=== PATIENT | female | born 1995 | race Caucasian/White ===

== ENCOUNTER 2016-09-03 10:33 | Outpatient (CLI) | payer OTHER ==
[2016-09-03 10:45] LABS: BASOPHILS % 0.6 (0.0-1.5); EOSINOPHILS % 1.5 % (0.0-6.8); LYMPHOCYTES # 1.3 # k/uL (0.6-4.0); MEAN CORPUSCULAR HEMOGLOBIN 30.4 pg (28.0-34.0); MONOCYTES # 0.2 # k/uL (0.0-0.9); NEUTROPHILS # 2.8 # k/uL (1.4-7.7)
[2016-09-03 11:14] LABS: eGFR (African) > 60; eGFR (Non-African) > 60
== END 2016-09-03 10:35 ==
LOC: LAB 10:33
PROVIDERS: ATTEND Physician Assistant
DX: R53.83 Other fatigue (principal)
CPT/HCPCS: 36415; 80053; 85025

== ENCOUNTER 2017-01-05 14:47 | Outpatient (CLI) | payer OTHER | END 2017-01-05 14:50 | LOC: LAB 14:47 | DX: Z32.00 Encounter for pregnancy test, result unknown (principal) | CPT/HCPCS: 36415; 84702 ==